=== PATIENT | male | born 1960 | race Caucasian/White ===

== ENCOUNTER 2022-07-16 02:17 | Emergency (ER) | payer BC ==
[~2022-07-16] VITALS: Ht 182.9 cm; Wt 65.3 kg
[2022-07-16 02:19] VITALS: BP 106/76
--- NOTE | 2022-07-16 02:34 | NUR ---
COVID-19 and flu swabs collected and sent to lab.
--- NOTE | 2022-07-16 03:01 | NUR ---
AT [facility] TO EXAM PT.
--- NOTE | 2022-07-16 03:01 | NUR ---
PT TO BED 05.
--- NOTE | 2022-07-16 03:15 | NUR ---
X-Ray at bedside.
[2022-07-16] MEDS ORDERED: ACET-10509 PO (03:40)
[2022-07-16] MEDS ORDERED: ROBAC PO (03:40)
--- NOTE | 2022-07-16 03:47 | NUR ---
Dr. Woo examining patient.
[2022-07-16] MEDS ORDERED: PSEU120T23 PO (03:49)
[2022-07-16 04:01] VITALS: BP 110/73
--- NOTE | 2022-07-16 04:07 | NUR ---
Patient discharged with v/s stable. Written and verbal after care instructions given and explained. Patient alert, oriented and verbalized understanding of instructions. Ambulatory with steady gait. All questions addressed prior to discharge. ID band removed. Patient advised to follow up with PMD. Rx of TYLENOL, SUDAFED, AND GUAIFENESIN- CODEINE SYRUP given. Patient educated on indication of medication including possible reaction and side effects. Opportunity to ask questions provided and answered.
== END 2022-07-16 04:07 | disposition home or self-care (01) ==
LOC: MED 02:17
DX: J20.9 Acute bronchitis, unspecified (principal); Z20.822 Contact with and (suspected) exposure to COVID-19
CPT/HCPCS: 71045; 87426; 87804; 99284; Q0092